=== PATIENT | male | born 1995 | race African-American/Black ===

== ENCOUNTER 2022-03-06 22:45 | Emergency (ER) | payer OTHER, SELFPAY ==
[2022-03-06 22:50] VITALS: BP 111/59; PULSE 60; RESP 18; TEMP 36.9; O2SAT 99
[2022-03-06 23:11] LABS: Basophils Percent Auto 0.4 % (0.2-1.2); Eosinophils Absolute Auto 0.3 K/mm3 (0-0.3); Eosinophils Percent Auto 3.2 % (0-4.4); Hematocrit 41.7 % (42.0-52.0); Hemoglobin 13.6 g/dL (14.0-18.0); Immature Granulocyte Absolute 0.02 K/mm3 (0.00-0.031); Immature Granulocyte Percent A 0.3 % (0-0.5); Lymphocytes Absolute Auto 2.17 K/mm3 (0.9-3.2); Lymphocytes Percent Auto 27.5 % (18.3-44.2); Mean Corpuscular HGB Conc 32.6 g/dl (32-36); Mean Corpuscular Hemoglobin 29.1 pg (26-34); Mean Corpuscular Volume 89.1 fl (80-100); Mean Platelet Volume 10.3 fl (7.4-10.4); Monocytes Absolute Auto 0.8 K/mm3 (0.1-0.6); Monocytes Percent Auto 10.3 % (2.6-8.5); Neutrophils Absolute Auto 4.6 K/mm3 (1.3-6.7); Neutrophils Percent Auto 58.3 % (45.5-73.1); Platelet Count Result 228 k/mm3 (150-375); Red Blood Count 4.68 M/mm3 (4.6-6.20); Red Cell Distribution Width 13.2 % (11.5-14.5); White Blood Count 7.9 K/mm3 (4.5-10.0)
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
[2022-03-06 23:22] LABS: Alanine Aminotransferase 18 U/L (6-50); Albumin Level 4.1 g/dL (3.5-5.1); Alkaline Phosphatase 61 U/L (38-126); Anion Gap 7 mmol/L (8-16); Aspartate Amino Transferase 26 U/L (17-59); Bilirubin,Total 2.3 mg/dL (0.2-1.3); Blood Urea Nitrogen 7 mg/dL (9-20); Calcium 8.6 mg/dL (8.4-10.2); Carbon Dioxide 27 mmol/L (22-30); Chloride 105 mmol/L (98-107); Estimated Glomerular Filt Rate > 60; Glucose 92 mg/dL (65-110); Potassium 3.4 mmol/L (3.4-5.0); Sodium 139 mmol/L (137-145)
[2022-03-06 23:29] LABS: Ethanol < 10 mg/dL (<10)
[2022-03-06 23:29] LABS: Appearance Urine Clear (Clear); Bilirubin Urine 1+ (Negative); Blood Urine 3+ (Negative); Color Urine Yellow (Yellow); Glucose Urine UA Negative (Negative); Ketones Urine Negative (Negative); Leukocyte Esterase Ur Negative LEU/UL (Negative); Nitrate Urine Negative (Negative); Protein Urine 2+ mg/dL (Negative); Specific Grav Ur >= 1.030 (1.001-1.035); pH Urine 5.5 (5.0-9.0)
[2022-03-06 23:31] LABS: Bacteria Urine Trace /hpf; Mucus Urine Few /lpf; RBC Urine >75 /hpf (0-2)
[2022-03-06 23:39] LABS: Add Urine Microscopic? YES; Amphetamine Screen Urine Negative (Negative); Barbiturate Screen Urine Negative (Negative); Benzodiazepines Screen Urine Negative (Negative); Cannabinoid Screen Urine Positive (Negative); Cocaine Screen Urine Negative (Negative); Methadone Screen Urine Negative (Negative); Opiate Screen Urine Negative (Negative); Phencyclidine Screen Urine Negative (Negative)
[2022-03-06 23:47] LABS: SARS-CoV-2 RNA PCR Negative
--- NOTE | 2022-03-06 23:50 | ECG_ITS ---
Measurements Intervals [place] Rate: 49 P: -15 WA: 136 QRS: 86 QRSD: 109 T: 59 QT: 451 QTc: 408 Interpretive Statements SINUS BRADYCARDIA EARLY REPOLARIZATION [ST ELEVATION WITH NORMALLY INFLECTED T-WAVE] NO PREVIOUS ECG AVAILABLE FOR COMPARISON Electronically Signed On 03-07-2022 16:28:56 CDT by Moriah Donohue M.D.
--- NOTE | 2022-03-07 01:03 | PC.NURSE ---
Patient asked us to call his friend Tylor [phone]. He stated to give him updates on his condition if we can as well as let him know what hospital he goes to.
--- NOTE | 2022-03-07 07:10 | PC.NURSE ---
SI precaution breakfast tray ordered at 0707
--- NOTE | 2022-03-07 09:15 | PC.NURSE ---
Pt refused vitals
--- NOTE | 2022-03-07 13:01 | PC.NURSE ---
Spoke with Nancy at [facility] who asks us to fax a face sheet to [place] and the whole chart to [facility].
[2022-03-07 15:25] VITALS: BP 114/69; PULSE 52; O2SAT 100
[2022-03-08 07:47] VITALS: BP 96/53; PULSE 54; RESP 18; TEMP 36.5; O2SAT 99
--- NOTE | 2022-03-08 07:51 | PC.NURSE ---
Pt resting in room 15, cooperative, but not really wanting to talk at this time, sitter at bedside
== END 2022-03-08 08:12 ==
PROVIDERS: Emergency Medicine; Emergency Provider Family Medicine
DX: R45.851 Suicidal ideations (principal); F32.A Depression, unspecified; Z20.822 Contact with and (suspected) exposure to COVID-19
CPT/HCPCS: 36415; 80053; 80307; 81001; 84443; 85025; 93005; 99285; C9803; U0003; U0005